=== PATIENT | male | born 1960 | race Caucasian/White ===

== ENCOUNTER 2018-01-25 13:27 | Emergency (ER) | payer BC, MEDICAID ==
[~2018-01-25] VITALS: Ht 165.1 cm; Wt 84.1 kg
[2018-01-25 13:30] VITALS: BP 129/85
[2018-01-25] MEDS ORDERED: KETOROLAC 30 MG/1 ML IM ONE (15:00)
[2018-01-25] MEDS ORDERED: DIAZEPAM 5 MG TABLET PO ONE (15:00)
[2018-01-25] MEDS ORDERED: KETOROLAC 30 MG/1 ML ONE (15:16)
[2018-01-25] MEDS ORDERED: DIAZEPAM 5 MG TABLET ONE (15:16)
== END 2018-01-25 16:43 | disposition home or self-care (01) ==
LOC: ED 16:37
DX: S29.011A Strain of muscle and tendon of front wall of thorax, initial encounter (principal); Z87.891 Personal history of nicotine dependence; X58.XXXA Exposure to other specified factors, initial encounter; Y93.89 Activity, other specified; Y92.89 Other specified places as the place of occurrence of the external cause; Y99.8 Other external cause status
CPT/HCPCS: 71101; 96372; 99284; J1885

== ENCOUNTER 2019-09-02 10:11 | Emergency (ER) ==
[~2019-09-02] VITALS: Ht 167.6 cm; Wt 89.4 kg
--- NOTE | 2019-09-02 10:39 | NUR ---
pt to ed for sternal cp rad to left chest and left arm since 0800 today. pt reports nausea at onset of cp, but it has resolved. pt states he thought he might be catching a cold, but then his chest started hurting. pt reports no aggravating factors and pain is relieved by standing. pt connected to all montiors. vss. no needs expressed. call light within reach. awaiting edmd assessment.
[2019-09-02] MEDS ORDERED: NITROGLYCERIN SINGLE TAB 0.4 MG SL ONE (11:12)
[2019-09-02] MEDS ORDERED: ASPIRIN 81 MG TABLET CHEW ONE (11:13)
[2019-09-02] MEDS ORDERED: MAALOX/HYOSCYAMINE/LIDOCAINE 45 ML BTL ONE (11:19)
--- NOTE | 2019-09-02 11:24 | NUR ---
pt resting in room. vss. pt refusing iv until iv medication ordered. risks discussed. pt medicated per nov. nitro given for cp 2-12/09. no needs expressed. call light within reach. awaiting results.
[2019-09-02] MEDS ORDERED: SODIUM CHLORIDE FLUSH 10ML SYR IVF ONE (11:30)
[2019-09-02] MEDS ORDERED: ASPIRIN 81 MG TABLET CHEW PO ONE (11:30)
[2019-09-02] MEDS ORDERED: NITROGLYCERIN SINGLE TAB 0.4 MG SL PRN (11:30)
[2019-09-02] MEDS ORDERED: MAALOX/HYOSCYAMINE/LIDOCAINE 45 ML BTL PO ONE (11:30)
[2019-09-02 11:42] LABS: ALANINE AMINOTRANSFERASE 31 U/L (12-78); ALBUMIN 2.9 g/dL (3.4-5.0); ANION GAP 7 mmol/L (5-15); CALCIUM 7.9 mg/dL (8.5-10.1); CHLORIDE 112 mmol/L (98-107); CREATININE 0.77 mg/dL (0.7-1.3)
[2019-09-02 11:45] LABS: ALKALINE PHOSPHATASE 61 U/L (45-117); BILIRUBIN,TOTAL 0.4 mg/dL (0.2-1.0); TOTAL PROTEIN 5.9 g/dL (6.4-8.2); TROPONIN I < 0.015 ng/mL (0.000-0.045)
[2019-09-02 11:55] VITALS: BP 117/71
--- NOTE | 2019-09-02 11:56 | NUR ---
pt resting in room. vss. pt reports cp 0/10. no needs expressed. call light within reach. awaiting results.
[2019-09-02 12:06] LABS: BASOPHILS # (AUTO) 0.03 x10^3/uL (0-0.1); BASOPHILS % (AUTO) 1 % (0-1); EOSINOPHILS # (AUTO) 0.12 x10^3/uL (0-0.4); EOSINOPHILS % (AUTO) 3 % (1-7); LYMPHOCYTES # (AUTO) 1.14 x10^3/uL (1-3.4); LYMPHOCYTES % (AUTO) 24 % (22-44); MEAN CORPUSCULAR HEMOGLOBIN 33.4 pg (27.5-34.5); MEAN CORPUSCULAR HGB CONC 33.5 g/dL (33.2-36.2); MEAN CORPUSCULAR VOLUME 99.8 fL (81-97); MEAN PLATELET VOLUME 8.4 fL (7.4-10.4); MONOCYTES # (AUTO) 0.35 x10^3/uL (0.2-0.8); MONOCYTES % (AUTO) 7 % (2-9); NEUTROPHILS # (AUTO) 3.14 x10^3/uL (1.8-6.8); NEUTROPHILS % (AUTO) 66 % (42-75); PLATELET COUNT 215 x10^3/uL (130-400); RED BLOOD COUNT 4.29 x10^6/uL (4.38-5.82); RED CELL DISTRIBUTION WIDTH 14.3 % (9.4-14.8)
--- NOTE | 2019-09-02 12:06 | NUR ---
Dr. Fiore to bs to update on results. hematology lab called and will release results now. plan to dc. pt dressing at this time.
[2019-09-02 12:51] LABS: MD NO
== END 2019-09-02 12:39 | disposition home or self-care (01) ==
LOC: ED 12:30
DX: R07.2 Precordial pain (principal); Z87.891 Personal history of nicotine dependence
CPT/HCPCS: 36415; 71045; 80053; 83690; 83880; 84484; 85025; 93005; 99284